=== PATIENT | male | born 1960 | race Caucasian/White ===

== ENCOUNTER 2024-09-22 23:36 | Emergency (ER) | payer OTHER ==
[~2024-09-22] VITALS: Ht 162.6 cm; Wt 68.0 kg
[2024-09-22] MEDS: SODIUM CHLORIDE 0.9% 1000ML 2,000 ML IV STA (00:30)
[2024-09-22 23:40] VITALS: TEMP 97.1
[2024-09-23 00:14] LABS: BASOPHILS % 0.3 % (0.0-1.0); EOSINOPHILS % 0.9 % (0.0-6.0); LYMPHOCYTES % 19.3 % (18.0-39.1); MONOCYTES % 6.6 % (4.4-11.3); NEUTROPHILS % 72.6 % (38.7-80.0); RED CELL DISTRIBUTION WIDTH 14.6 % (11.7-14.4)
[2024-09-23 00:31] LABS: EST GLOMERULAR FILTRATION RATE 84.0 ML/MIN (>=60)
[2024-09-23 00:36] LABS: ETHANOL < 10.0 mg/dL (0.0-10.0)
[2024-09-23 04:56] VITALS: PULSE 58; RESP 17; O2SAT 98
== END 2024-09-23 05:20 | disposition home or self-care (01) ==
LOC: ER 23:41
DX: M79.18 Myalgia, other site (principal); Z59.00 Homelessness unspecified; Q74.0 Other congenital malformations of upper limb(s), including shoulder girdle; R94.31 Abnormal electrocardiogram [ECG] [EKG]; F17.210 Nicotine dependence, cigarettes, uncomplicated
CPT/HCPCS: 36415; 70450; 71045; 80053; 80320; 82550; 83690; 83880; 84484; 85025; 93005; 99284; J7030